=== PATIENT | male | born 1970 | race African-American/Black ===

== ENCOUNTER 2017-09-21 10:46 | Emergency (ER) | payer OTHER ==
[~2017-09-21] VITALS: Ht 195.6 cm; Wt 140.2 kg
[2017-09-21 12:43] LABS: CALCIUM 9.1 mg/dL (8.5-10.1); CARBON DIOXIDE 22.4 mmol/L (21-32); CHLORIDE SERUM 99 mmol/L (98-107); CREATININE SERUM 1.1 mg/dL (0.7-1.3); GFR1 > 60 mL/min; GLUCOSE SERUM 101 mg/dL (74-106); LIPASE 196 IU/L (73-393); POTASSIUM SERUM 3.4 mmol/L (3.5-5.1); SODIUM SERUM 134 mmol/L (136-145)
[2017-09-21 12:56] LABS: BASOPHIL % 0.5 % (0-2); PLATELET COUNT 315 x10^3mcL (130-400)
[2017-09-21 13:05] LABS: rbc morphology (normal/abnorm) ABNORMAL (NORMAL)
[2017-09-21 13:18] LABS: UA SPECIFIC GRAVITY <=1.005 (1.005-1.035); microscopic required? YES; urine erythrocyte 1+ (NEGATIVE)
[2017-09-21 13:53] LABS: ALBUMIN 3.9 g/dL (3.4-5.0); BILIRUBIN DIRECT 0.26 mg/dL (0.0-0.2); BILIRUBIN TOTAL 1.3 mg/dL (0.20-1.00)
[2017-09-21 13:54] LABS: TOTAL PROTEIN, SERUM 8.3 g/dL (6.4-8.2)
[2017-09-21 14:07] VITALS: BP 137/66
== END 2017-09-21 14:07 | disposition home or self-care (01) ==
LOC: ED 10:46
PROVIDERS: Emergency Medicine; General Practice
DX: K29.70 Gastritis, unspecified, without bleeding (principal)
CPT/HCPCS: J2405; J3490

== ENCOUNTER 2019-05-07 23:14 | Emergency (ER) | payer OTHER ==
[~2019-05-07] VITALS: Ht 195.6 cm; Wt 148.8 kg
[2019-05-07 23:29] VITALS: Ht 195.6 cm; Wt 148.8 kg
[2019-05-08 01:21] LABS: BASOPHIL % 0.1 % (0-2); PLATELET COUNT 337 x10^3mcL (130-400)
[2019-05-08 01:23] LABS: RED CELL DISTRIBUTION WIDTH 15.8 % (11.5-14.5)
[2019-05-08 01:43] LABS: CARBON DIOXIDE 25.6 mmol/L (21-32); CHLORIDE SERUM 102 mmol/L (98-107); GFR1 > 60 mL/min; GLUCOSE SERUM 143 mg/dL (74-106); POTASSIUM SERUM 3.7 mmol/L (3.5-5.1); SODIUM SERUM 139 mmol/L (136-145)
[2019-05-08 01:49] LABS: ALBUMIN 3.7 g/dL (3.4-5.0); ALKALINE PHOSPHATASE 109 U/L (46-116); ALT/SGPT 33 U/L (16-63); AST/SGOT 17 U/L (15-37); BILIRUBIN TOTAL 0.61 mg/dL (0.20-1.00); TOTAL PROTEIN, SERUM 8.2 g/dL (6.4-8.2)
[2019-05-08 03:56] VITALS: BP 142/78
== END 2019-05-08 03:56 | disposition home or self-care (01) ==
LOC: ED 23:14
PROVIDERS: Emergency Medicine
DX: R10.13 Epigastric pain (principal); R10.12 Left upper quadrant pain; R11.2 Nausea with vomiting, unspecified
CPT/HCPCS: J2405; J7030

== ENCOUNTER 2019-09-13 22:51 | Emergency (ER) | payer OTHER ==
[~2019-09-13] VITALS: Ht 195.6 cm; Wt 152.0 kg
[2019-09-13 22:59] VITALS: Ht 195.6 cm; Wt 152.0 kg
[2019-09-14 01:43] VITALS: BP 133/71
== END 2019-09-14 01:43 | disposition home or self-care (01) ==
LOC: ED 22:51
DX: S92.531A Displaced fracture of distal phalanx of right lesser toe(s), initial encounter for closed fracture (principal); W18.30XA Fall on same level, unspecified, initial encounter; Y93.89 Activity, other specified; Y92.89 Other specified places as the place of occurrence of the external cause; Y99.8 Other external cause status